=== PATIENT | female | born 1960 | race Caucasian/White ===

== ENCOUNTER → 2016-10-04 | Outpatient (CLI) | payer OTHER ==
[~2016-10-04] MED LIST: METO50TA16 PO; MULT-506; SIMV20TA2
--- NOTE | 2016-10-04 16:31 | MAMMOGRAPHY REPORT ---
BILATERAL DIGITAL SCREENING MAMMOGRAM TOMOSYNTHESIS WITH CAD: 10/04/2016 CLINICAL HISTORY: Routine screening examination. TECHNIQUE: Breast tomosynthesis in addition to standard 2D mammography was performed. Current study was also evaluated with a Computer Aided Detection (CAD) system. COMPARISON: Comparison is made to exams dated: 08/17/2015 mammogram, 08/14/2014 mammogram, 08/13/2013 m ammogram, and 07/22/2010 mammogram - [facility]. BREAST COMPOSITION: There are scattered areas of fibroglandular density in both breasts. FINDINGS: The parenchymal pattern is unchanged. No developing mass, architectural distortion or clu ster of suspicious microcalcifications is seen in either breast. IMPRESSION: ACR BI-RADS CATEGORY 2: BENIGN There is no mammographic evidence of malignancy. A 1 year screening mammogram is recommended. The p atient will receive written notification of the results. Approximately 10% of breast cancers are not detected with mammography. A negative mammographic repor t should not delay biopsy if a clinically suggestive mass is present. Ijeoma Harrington M.D. ay/:10/04/2016 15:39:36 Vocational Horticulture Instructor: Marija CAVANAUGH(R)(M), [facility] letter sent: Normal 1/2 BI-RADS Code: ACR BI-RADS Category 2: Benign
== END | disposition home or self-care (01) ==
LOC: C.MAMM 09:54
PROVIDERS: ATTEND Family Medicine
DX: Z12.31 Encounter for screening mammogram for malignant neoplasm of breast (principal)

== ENCOUNTER 2022-03-16 11:39 | Observation (INO) ==
[2022-03-16] MEDS ORDERED: SODIUM CHLORIDE 0.9% 1000ML 1,000 ML IV ONE (12:01)
[2022-03-16 12:26] LABS: Basophils # (auto) 0.04 K/uL (0-0.2); Basophils % (auto) 0.4 %; Eosinophils # (auto) 0.07 K/uL (0-0.50); Eosinophils % (auto) 0.7 %; Hematocrit (blood only) 45.5 % (34.1-44.9); Hemoglobin 15.2 g/dl (12.0-16.0); Immature Granulocytes # (auto) 0.05 K/uL (0.00-0.02); Immature Granulocytes % (auto) 0.5 %; Lymphocytes # (auto) 1.66 K/uL (1.2-3.4); Lymphocytes % (auto) 16.5 %; Mean Corpuscular Hemoglobin 29.9 pg (25.0-34.0); Mean Corpuscular Hgb Conc 33.4 g/dL (32.0-36.0); Mean Corpuscular Volume 89.6 fL (80.0-100.0); Mean Platelet Volume 11.6 fL (9.4-12.3); Monocytes # (auto) 1.08 K/uL (0.24-0.82); Monocytes % (auto) 10.8 %; Neutrophils # (auto) 7.14 K/uL (1.4-6.5); Neutrophils % (auto) 71.1 %; Platelet Count 169 K/uL (130-400); RDW Standard Deviation 42.9 fL (36.4-46.3); Red Blood Count 5.08 M/uL (3.93-5.22); White Blood Count 10.04 K/ul (4.8-10.8)
--- NOTE | 2022-03-16 12:44 | XRay Report ---
SINGLE VIEW CHEST CLINICAL HISTORY: Atypical chest pain. FINDINGS: An AP, portable, upright chest radiograph is compared to study dated 04/23/2021. The cardiom ediastinal silhouette is unremarkable. There is mild elevation of the left hemidiaphragm with left ba silar atelectasis. The lungs and pleural spaces are otherwise clear. No pneumothorax is seen. The ske letal structures are osteopenic. The bony thorax is grossly intact. IMPRESSION: No active disease in the chest. ACT 112: Negative or not required by law. Electronically signed by: Leonel Mathew M.D. 03/16/2022 12:43 PM
[2022-03-16 12:54] LABS: Troponin I High Sensitivity 3.8 pg/ml (0-14)
[2022-03-16 13:00] LABS: Albumin Globulin Ratio 1.8 (0.9-2); Albumin Level 4.2 gm/dl (3.4-5.0); BUN Creatinine Ratio 16.2 (10-20); Bilirubin,Total 0.4 mg/dl (0.2-1.0); Calcium 9.2 mg/dl (8.5-10.1); Creatinine Clr Calc Pharmacy 65.6 ml/min; Est GFR (African American) 71.3 ml/min; Est GFR (Non-African American) 61.5 ml/min; Globulin 2.4 gm/dl (2.5-4.0); Magnesium 2.2 mg/dl (1.7-2.4); Phosphorus 2.6 mg/dl (2.5-4.9); Total Protein 6.6 gm/dl (6.0-8.3)
[2022-03-16] MEDS ORDERED: OPTIRAY 300 500mL IV ONE (13:01)
--- NOTE | 2022-03-16 13:21 | CT Scan Report ---
CT ANGIOGRAM OF THE BRAIN; CT ANGIOGRAM OF THE NECK CLINICAL HISTORY: Right facial numbness. Generalized weakness. COMPARISON STUDY: Unenhanced CT of the brain performed concurrently on 03/16/2022. TECHNIQUE: Following the IV administration of 115 of Optiray 300, CT angiogram of the head and neck w as performed from the aortic arch to the vertex. Images are reviewed in the axial, sagittal, and red nal planes. 3-D MIPS images are created and assessed. IV contrast was administered without complicati on. All measurements were calculated based on NASCET criteria. A dose lowering technique was utilize d adhering to the principles of ALARA. CT DOSE: 1152.47 mGy.cm FINDINGS: Brain parenchyma: The brain parenchyma is normal in appearance. There is no evidence of hemorrhage, m ass effect, or acute territorial ischemia noting angiographic phase technique. There is no evidence o f enhancing mass lesion on the angiogram phase images. The ventricles, sulci, and cisterns are normal in configuration. Russell-white matter differentiation is preserved. No extra-axial fluid collection is seen. Thoracic aorta: Visualized portions of the thoracic aorta are normal in caliber. The aortic arch demo nstrates standard 3-vessel anatomy. Right carotid arterial system: The right common carotid artery is widely patent, as are the right int ernal and external carotid arteries. Mild calcified plaque is noted in the carotid bulb. Left carotid arterial system: The left common carotid artery is widely patent, as are the left cisco certified internetwork expert al and external carotid arteries. Mild calcified plaque is seen in the carotid bulb. Vertebral arteries: The vertebral arteries are widely patent bilaterally and codominant. Subclavian arteries: Widely patent bilaterally. Intracranial vasculature: There is moderate atherosclerotic calcification of the cavernous carotid an d vertebral arteries. The internal carotid arteries are patent at the skull base, as are the anterior and middle cerebral arteries bilaterally. The vertebrobasilar system and posterior cerebral arteries are widely patent. The vertebral arteries are codominant. There is a large left posterior communicat ing artery. There is no aneurysm, high-grade stenosis, or focal vessel cut off seen throughout the in tracranial circulation. Jugular veins: Patent bilaterally. Dural sinuses: Patent. Lung apices: Partially visualized upper lobe lung parenchyma appears clear. Soft tissues: The visualized pharyngeal soft tissues are normal in appearance noting angiographic pha se technique. The oropharyngeal airway appears widely patent. The salivary and thyroid glands are nor mal in appearance. No cervical lymphadenopathy is seen. Skeletal structures: The skeletal structures are osteopenic. The calvarium appears intact. The cervic al spine is within normal limits. Orbits: The bony orbits are intact. Orbital contents are normal as visualized. Sinuses and mastoids: The paranasal sinuses are clear. The mastoid air cells are well pneumatized. IMPRESSION: 1. There is no evidence of hemorrhage, mass effect, or acute territorial ischemia noting angiographic phase technique. 2. Unremarkable CT angiogram of the brain. 3. Unremarkable CT angiogram of the neck. ACT 112: Negative or not required by law. Electronically signed by: Leonel Mathew M.D. 03/16/2022 1:20 PM
--- NOTE | 2022-03-16 13:30 | CT Scan Report ---
CT OF THE HEAD WITHOUT CONTRAST CLINICAL HISTORY: right facial numbness/weakness COMPARISON STUDY: No previous studies for comparison. TECHNIQUE: Helical axial images of the head were obtained without IV contrast. Automated exposure con trol was utilized for the study. A dose lowering technique was utilized adhering to the principles o f ALARA. FINDINGS: No acute intracranial hemorrhage, midline shift or mass effect is present. The ventricular system is unremarkable. The basal cisterns are patent. No extra-axial collections are present. There are no findings to suggest acute dural sinus thrombosis or acute territorial infarct. No significant calvarial abnormalities are present. Visualized portions of the sinuses and mastoid air cells are ernie ar. IMPRESSION: No acute intracranial findings. ACT 112: Negative or not required by law. Electronically signed by: Mike Lopez M.D. 03/16/2022 1:29 PM
--- NOTE | 2022-03-16 15:36 | History & Physical Report ---
Date of Service March 16, 2022 Assessment & Plan (1) Right facial numbness: Plan: Presented with right facial numbness for the last 3 days without any other significant associated symptoms Questionable right facial droop resolved No other symptoms suggestive of TIA We will observe the patient in telemetry unit to rule out stroke/TIA CT of the head, CTA of the head and neck are unremarkable Will get echo of the heart with bubble study MRI is pending Neuro observation every shift Neurology consulted (2) Hypertension: Plan: Remains minimally elevated at 154/91 We will continue current medications of beta-amandeep (3) History of right breast cancer: Plan: Status post surgery 2019 Has been on tamoxifen History of migraine Stable without any acute attack Chronic back pain No acute issues DVT prophylaxis SCDs for now CODE STATUS Full History of Present Illness Chief Complaint: Right facial numbness since Monday last. Primary Care Provider: Morenita Bryson DO She is a 61-year-old female with significant past medical history of hypertension, migraine without any water, history of breast cancer status post surgery and seasonal allergies apparently has been going to sessions with chiropractor maneuver for the neck for about 10 days. She has been complaining of right facial numbness since Monday last and associated with questionable right facial droop this morning. Her symptoms of neck pain improved with chiropractic maneuver and she was at chiropractor's office today with right facial numbness and was advised to call her PCP and eventually came to the e mergency room. He did not have any other associated symptoms of numbness or tingling in the extremities, no weakness involving any side of the body, no problem with speech and/or swallowing and no problem with gait. She has had issues with her right eye diplopia for the last 6-month and she has been under care of spareribs trimmer for that and she thinks there may be slight worsening of her diplopia recently. She denies any chest pain, palpitation, any shortness of breath, any nausea and or vomiting. Her neuro exam was unremarkable and initial investigation including CT of the head, CTA of the head and neck were unremarkable. He was admitted to telemetry unit for continuation of care. Allergies Allergy/AdvReac Type Severity Reaction Status Date / Time latex Allergy CONTACT Verified 04/23/21 22:06 Home Medications Medication Instructions Recorded Confirmed Type tramadol 50 mg tablet 50 mg PO BID PRN Pain 09/07/18 05/26/21 History celecoxib 200 mg capsule (Celebrex) 200 mg PO DAILY PRN Pain 05/27/20 05/26/21 History turmeric 400 mg capsule 400 mg PO DAILY 05/27/20 05/26/21 History magnesium oxide 400 mg PO DAILY 04/23/21 05/26/21 History metoprolol succinate 50 mg 50 mg PO DAILY 04/23/21 05/26/21 History tablet,extended release 24 hr multivitamin 1 tab PO DAILY 04/23/21 05/26/21 History tamoxifen 10 mg tablet 10 mg PO .QOD 05/26/21 05/26/21 History Past Med/Surg History Medical History Breast cancer, right Herniated disc High blood cholesterol High cholesterol PCOS (polycystic ovarian syndrome) Surgical History H/O pelvic surgery repair of cervix and vaginal wall after childbirth in 1995 S/P OLLIE (total abdominal hysterectomy) surgery 2008 Status post right breast lumpectomy surgery 08-02-2018 Status post surgery re excision right breast 08-16-2018 Status post tonsillectomy surgery 1990 Family History Mother Hypertension Father , age 40 Myocardial infarction Brother No problems noted. Son No problems noted. 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 Feels Safe at Home: Yes Review of Systems Review of Systems: All systems reviewed as in H&P Neurologic: Minimal right facial numbness Physical Exam Physical Exam: Lying in bed comfortably Constitutional: well developed, well nourished and + obese; not ill appearing Eyes: PERRL, conjunctivae normal, anicteric sclerae ENMT: external ear and nose normal, oropharynx normal Neck: trachea midline, no thyromegaly Respiratory: no respiratory distress Auscultation: lungs clear to auscultation bilaterally Cardiovascular: Rate/Rhythm: regular rate and regular rhythm; not tachycardic Heart Sounds: normal S1 and normal S2; no murmur Gastrointestinal (Abdomen): Inspection/Auscultation: normal bowel sounds; abdomen not distended Percussion/Palpation: abdomen soft; abdomen nontender Musculoskeletal: No acute arthritis in any joint Neurologic: patellar DTR's 2+ bilat, sensation intact Motor/Sensory: no tremor, normal movement and no sensory deficit Coordination: normal [id number] test Psychiatric: A+Ox3, euthymic affect Lymphatic: no cervical or axillary lymphadenopathy Results & Data Results & Data ([facility]) Vital Signs (Past 12 Hours) Vital Signs Temp Pulse Resp BP Pulse Ox O2 Del Method 03/16/22 14:24 154/91 H 03/16/22 13:10 94 H 15 99 Room Air 03/16/22 13:00 112 H 14 100 Room Air 03/16/22 13:00 166/88 H 03/16/22 12:58 180/89 H 03/16/22 12:58 109 H 18 100 Room Air 03/16/22 12:57 109 H 16 100 Room Air 03/16/22 12:30 93 H 22 98 Room Air 03/16/22 12:15 90 16 99 Room Air 03/16/22 12:10 192/137 H 03/16/22 12:00 101 H 18 98 Room Air 03/16/22 13:04 98 Room Air 03/16/22 11:44 36.7 C 95 H 18 186/113 H 100 Room Air Laboratory Results Short CBC 03/16/22 Range/Units 12:13 WBC 10.04 (4.8-10.8) K/ul Hgb 15.2 (12.0-16.0) g/dl Hct 45.5 H (34.1-44.9) % Plt Count 169 (130-400) K/uL BMP 03/16/22 12:13 Sodium 142 Potassium 4.0 Chloride 106 Carbon Dioxide 28 BUN 16 Creatinine 0.99 Glucose 115 H Calcium 9.2 Liver Function 03/16/22 Range/Units 12:13 Total Bilirubin 0.4 (0.2-1.0) mg/dl AST 20 (13-39) U/L ALT 18 (7-52) U/L Alkaline Phosphatase 82 (34-104) U/L Albumin 4.2 (3.4-5.0) gm/dl Code Status & VTE Plan VTE Prophylaxis Plan VTE Prophylaxis will be ordered: Yes
[2022-03-16 16:05] LABS: Lyme Ab IgG w/WB Rflx Negative (Negative)
[2022-03-16 16:06] LABS: Lyme Ab IgM w/WB Rflx Negative (Negative)
[2022-03-16] MEDS ORDERED: traMADol HCL 50 MG TABLET PO PRN (16:52)
[2022-03-16] MEDS ORDERED: CeleBREX 200 MG CAP PO PRN (16:52)
--- NOTE | 2022-03-16 18:27 | Magnetic Resonance Report ---
MRI OF THE BRAIN WITHOUT CONTRAST CLINICAL HISTORY: right lower facial weakness/droop COMPARISON STUDY: Head CT and CTA of the head performed earlier today. TECHNIQUE: Utilizing a 1.5 Natasha magnet and dedicated coil, multiplanar, multiecho imaging of the bra in was performed without IV contrast. FINDINGS: There are no foci of restricted diffusion to suggest acute infarct. No acute intracranial h emorrhage, midline shift or mass effect is present. Brain volume is normal. Ventricular system is nor mal. Basal cisterns are patent. There are no extra axial collections. Flow-voids for the major intrac ranial vessels are present. A 3 mm white matter T2 hyperintense focus within the left frontal lobe is of doubtful significance. No intracranial masses are identified on this unenhanced examination. No f oci suspicious calvarial replacement. No evidence for sinusitis. IMPRESSION: No acute intracranial findings. ACT 112: Negative or not required by law. Electronically signed by: Mike Lopez M.D. 03/16/2022 6:25 PM
--- NOTE | 2022-03-16 19:55 | Emergency Department Note ---
Impression & Plan Right facial numbness, Hypertension, Weakness on right side of face ED Provider Note NAME: BJ MCCLOUD AGE: 61 SEX: F ARRIVES VIA: Walk-In INFORMANT: Patient ED PROVIDER(S): Pietro Salgado MD CHIEF COMPLAINT: Right facial numbness/weakness. PLAN: Disposition: Admit MEDICAL DECISION MAKING: The patient is a pleasant 61-year-old woman with a prior history of breast cancer status post surgery and radiation remotely who presents to the emergency department for evaluation of right facial numbness that has been ongoing for the past 2 days with the development of extensive facial weakness and right lower facial droop that she noticed at 9 AM this morning when looking into the mirror. Patient reports she has had ongoing right neck numbness and tingling for the past several weeks where she saw a chiropractor last Monday and following thi s began developed tingling in her face and development of weakness. She also reports that she has been having vision changes/blurred vision for which she has followed up with ophthalmology for recently and was diagnosed with epiretinal membranes bilateral eyes. However she reports mainly experiencing double vision over the past week. She denies any extremity weakness, vertigo or imbalance. Denies recent fevers, chills, cough, congestion, GI or symptoms. On arrival the patient is no distress, afebrile, with BP initially 180s/110s and otherwise stable vital signs. She appears clinically dry. She has very subtle right lower facial weakness/asymmetry at rest and is symmetric with smile. There is no overt involvement of the forehead or eyelid. 5/5 strength and SILT x 4 extremities. Cerebellar function intact including amuqjj-jy-fcik, alternating palms, wpak-[id number]. EKG without overt acute ischemia. CXR negative for acute cardiopulmonary process. WBC, hemoglobin and platelets within normal limits. Chemistry without metabolic acidosis. Electrolytes and LFTs unremarkable. High-sensitivity troponin 3.8, within normal limits. Lipase not elevated. TSH within normal limits. Lyme screen was negative. COVID-19 RNA, NAAT test was negative. CT of the head and CTA of the head and neck were performed were negative for ICH, ischemia or severe narrowing occlusion of large vessels. Given the patient has no clear involvement of the forehead suggest Maddox's palsy we did agree to proceed with admission for further evaluation. Case was discussed with Dr. Francois, [facility] who will evaluate the patient for admission. Triage Nursing notes reviewed and agree them. Prior medical records reviewed Vital Signs: reviewed and remarkable for no significant abnormalities Differential diagnosis: Infection, dehydration, metabolic abnormality, hypo/hyperglycemia, electrolyte disturbance, anemia, hypoxia, cardiac sources, intracerebral event, toxicologic, neurologic, as well as other pathologies. ER treatment provided: See below. Diagnostics interpreted by me: ECG: Normal sinus rhythm, 90 bpm, no ectopy, no overt ST elevation or depression, QTC 479, QRS 84. Cardiac Monitoring: An order for continuous cardiac monitoring was placed and demonstrated Normal sinus rhythm, 90 bpm, no ectopy. Laboratory studies: See below Imaging studies: See below Consultation(s): Case was discussed with Tiesha Andrade [facility] who will evaluate the patient for admission. HPI: The patient is a pleasant 61-year-old woman with a prior history of breast cancer status post surgery and radiation remotely who presents to the emergency department for evaluation of right facial numbness that has been ongoing for the past 2 days with the development of extensive facial weakness and right lower facial droop that she noticed at 9 AM this morning when looking into the mirror. Patient reports she has had ongoing right neck numbness and tingling for the past several weeks where she saw a chiropractor last Monday and following this began developed tingling in her face and development of weakness. She also reports that she has been having vision changes/blurred vision for which she has followed up with ophthalmology for recently and was diagnosed with epiretinal membranes bilateral eyes. However she reports mainly experiencing double vision over the past week. She denies any extremity weakness, vertigo or imbalance. Denies recent fevers, chills, cough, congestion, GI or symptoms. ROS: See above HPI for pertinent positives & negatives. A total of 10 systems reviewed and were otherwise negative. VITALS:See Below PHYSICAL EXAMINATION: GENERAL: Awake, alert, well-appearing, in no distress HENT: Normocephalic, atraumatic. Oropharynx with dry mucous membranes and otherwise unremarkable. EYES: Normal conjunctiva. Sclera non-icteric. EOMI. No nystamgus. PEARRL. NECK: Supple. No nuchal rigidity. FROM. No JVD. RESPIRATORY: Clear to auscultation. CARDIAC: Regular rate, normal rhythm. Extremities warm and well perfused. Pulses equal. ABDOMEN: Soft, non-distended. No tenderness to palpation. No rebound or guarding. No masses. RECTAL: Deferred. MUSCULOSKELETAL: Chest examination reveals no tenderness. The back is symmetrical on inspection without obvious abnormality. There is no CVA tenderness to palpation. No joint edema. LOWER EXTREMITIES: Calves are equal size bilaterally and non-tender. No edema. No discoloration. NEURO: Very subtle right lower facial weakness/asymmetry at rest and is symmetric with smile. There is no overt involvement of the forehead or eyelid. No dysarthria or aphasia. 5/5 strength and SILT x 4 extremities. Cerebellar function intact including vxanlq-td-ilog, alternating palms, dwnv-wm-[id number]. SKIN: No rash or jaundice noted. Pietro Salgado MD Past Med/Surg History Medical History Breast cancer, right Herniated disc High blood cholesterol High cholesterol PCOS (polycystic ovarian syndrome) Surgical History H/O pelvic surgery repair of cervix and vaginal wall after childbirth in 1995 S/P OLLIE (total abdominal hysterectomy) surgery 2008 Status post right breast lumpectomy surgery 08-02-2018 Status post surgery re excision right breast 08-16-2018 Status post tonsillectomy surgery 1990 Family History Mother Hypertension Father , age 40 Myocardial infarction Brother No problems noted. Son No problems noted. 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) Feels Safe at Home: Yes Safety Concerns: Feels Safe At This Time Assistive Devices: Glasses Allergies Allergies Allergy/AdvReac Type Severity Reaction Status Date / Time latex Allergy CONTACT Verified 10/08/21 22:06 Home Meds Home Medications Medication Instructions Recorded Confirmed tramadol 50 mg tablet 50 mg PO BID PRN Pain 09/07/18 05/26/21 celecoxib 200 mg capsule (Celebrex) 200 mg PO DAILY PRN Pain 05/27/20 05/26/21 turmeric 400 mg capsule 400 mg PO DAILY 05/27/20 05/26/21 magnesium oxide 400 mg PO DAILY 04/23/21 05/26/21 metoprolol succinate 50 mg 50 mg PO DAILY 04/23/21 05/26/21 tablet,extended release 24 hr multivitamin 1 tab PO DAILY 04/23/21 05/26/21 tamoxifen 10 mg tablet 10 mg PO .QOD 05/26/21 05/26/21 Results & Data (ED) Vital Signs Vital Signs - 24 hr 03/16/22 11:44 03/16/22 13:04 03/16/22 12:00 Temperature 36.7 C Temperature Source Temporal Artery Scan Pulse Rate 95 H 101 H Pulse Rhythm Regular Respiratory Rate 18 18 Respiratory Effort / Characteristics Non-Labored Respiratory Depth Normal Blood Pressure 186/113 H Blood Pressure Mean 137 Blood Pressure Position Sitting Pulse Oximetry 100 98 98 Oxygen Delivery Method Room Air Room Air Room Air Sepsis Recent Fever Within 48 Hours No Sepsis New/Unexplained Change in Mental Status No Sepsis Action Taken by Nursing No Action Required 03/16/22 12:10 03/16/22 12:15 03/16/22 12:30 Temperature Temperature Source Pulse Rate 90 93 H Pulse Rhythm Respiratory Rate 16 22 Respiratory Effort / Characteristics Respiratory Depth Blood Pressure 192/137 H Blood Pressure Mean 155 Blood Pressure Position Pulse Oximetry 99 98 Oxygen Delivery Method Room Air Room Air Sepsis Recent Fever Within 48 Hours Sepsis New/Unexplained Change in Mental Status Sepsis Action Taken by Nursing 03/16/22 12:57 03/16/22 12:58 03/16/22 12:58 Temperature Temperature Source Pulse Rate 109 H 109 H Pulse Rhythm Respiratory Rate 16 18 Respiratory Effort / Characteristics Respiratory Depth Blood Pressure 180/89 H Blood Pressure Mean 119 Blood Pressure Position Pulse Oximetry 100 100 Oxygen Delivery Method Room Air Room Air Sepsis Recent Fever Within 48 Hours Sepsis New/Unexplained Change in Mental Status Sepsis Action Taken by Nursing 03/16/22 13:00 03/16/22 13:00 03/16/22 13:10 Temperature Temperature Source Pulse Rate 112 H 94 H Pulse Rhythm Respiratory Rate 14 15 Respiratory Effort / Characteristics Respiratory Depth Blood Pressure 166/88 H Blood Pressure Mean 114 Blood Pressure Position Pulse Oximetry 100 99 Oxygen Delivery Method Room Air Room Air Sepsis Recent Fever Within 48 Hours Sepsis New/Unexplained Change in Mental Status Sepsis Action Taken by Nursing 03/16/22 14:24 Temperature Temperature Source Pulse Rate Pulse Rhythm Respiratory Rate Respiratory Effort / Characteristics Respiratory Depth Blood Pressure 154/91 H Blood Pressure Mean 112 Blood Pressure Position Pulse Oximetry Oxygen Delivery Method Sepsis Recent Fever Within 48 Hours Sepsis New/Unexplained Change in Mental Status Sepsis Action Taken by Nursing Laboratory Data Attestation: I reviewed the patient's lab results. Result diagrams: 03/16/22 12:13 03/16/22 12:13 Lab Results 03/16/22 03/16/22 03/16/22 Range/Units 12:13 12:13 12:13 WBC 10.04 (4.8-10.8) K/ul RBC 5.08 (3.93-5.22) M/uL Hgb 15.2 (12.0-16.0) g/dl Hct 45.5 H (34.1-44.9) % MCV 89.6 (80.0-100.0) fL MCH 29.9 (25.0-34.0) pg MCHC 33.4 (32.0-36.0) g/dL RDW Std Deviation 42.9 (36.4-46.3) fL RDW Coeff of Candice 13.0 (11.5-14.5) % Plt Count 169 (130-400) K/uL MPV 11.6 (9.4-12.3) fL Immature Gran % (Auto) 0.5 % Neut % (Auto) 71.1 % Lymph % (Auto) 16.5 % Saline % (Auto) 10.8 % Eos % (Auto) 0.7 % Baso % (Auto) 0.4 % Neut # (Auto) 7.14 H (1.4-6.5) K/uL Lymph # (Auto) 1.66 (1.2-3.4) K/uL Saline # (Auto) 1.08 H (0.24-0.82) K/uL Eos # (Auto) 0.07 (0-0.50) K/uL Baso # (Auto) 0.04 (0-0.2) K/uL Immature Gran # (Auto) 0.05 H (0.00-0.02) K/uL Sodium 142 (136-145) mmol/L Potassium 4.0 (3.5-5.1) mmol/L Chloride 106 (98-107) mmol/L Carbon Dioxide 28 (21-32) mmol/L Anion Gap 8 (3-11) BUN 16 (6-23) mg/dl Creatinine 0.99 (0.6-1.2) mg/dl Est Cr Clr Drug Dosing 65.6 ml/min Est GFR ( Amer) 71.3 ml/min Est GFR (Non-Af Amer) 61.5 ml/min BUN/Creatinine Ratio 16.2 (10-20) Glucose 115 H (70-99(Fasting)) mg/dl Calcium 9.2 (8.5-10.1) mg/dl Phosphorus 2.6 (2.5-4.9) mg/dl Magnesium 2.2 (1.7-2.4) mg/dl Total Bilirubin 0.4 (0.2-1.0) mg/dl AST 20 (13-39) U/L ALT 18 (7-52) U/L Alkaline Phosphatase 82 (34-104) U/L Troponin I High Sens 3.8 (0-14) pg/ml Total Protein 6.6 (6.0-8.3) gm/dl Albumin 4.2 (3.4-5.0) gm/dl Globulin 2.4 L (2.5-4.0) gm/dl Albumin/Globulin Ratio 1.8 (0.9-2) Lipase 26 (11-82) U/L TSH 4.497 (0.300-4.500) uIu/ml Lyme Disease IgG Ab (Negative) Lyme Disease IgM Ab (Negative) SARS-CoV-2, RNA, NAAT (NEGATIVE) 03/16/22 03/16/22 Range/Units 12:13 14:04 WBC (4.8-10.8) K/ul RBC (3.93-5.22) M/uL Hgb (12.0-16.0) g/dl Hct (34.1-44.9) % MCV (80.0-100.0) fL MCH (25.0-34.0) pg MCHC (32.0-36.0) g/dL RDW Std Deviation (36.4-46.3) fL RDW Coeff of Candice (11.5-14.5) % Plt Count (130-400) K/uL MPV (9.4-12.3) fL Immature Gran % (Auto) % Neut % (Auto) % Lymph % (Auto) % Saline % (Auto) % Eos % (Auto) % Baso % (Auto) % Neut # (Auto) (1.4-6.5) K/uL Lymph # (Auto) (1.2-3.4) K/uL Saline # (Auto) (0.24-0.82) K/uL Eos # (Auto) (0-0.50) K/uL Baso # (Auto) (0-0.2) K/uL Immature Gran # (Auto) (0.00-0.02) K/uL Sodium (136-145) mmol/L Potassium (3.5-5.1) mmol/L Chloride (98-107) mmol/L Carbon Dioxide (21-32) mmol/L Anion Gap (3-11) BUN (6-23) mg/dl Creatinine (0.6-1.2) mg/dl Est Cr Clr Drug Dosing ml/min Est GFR ( Amer) ml/min Est GFR (Non-Af Amer) ml/min BUN/Creatinine Ratio (10-20) Glucose (70-99(Fasting)) mg/dl Calcium (8.5-10.1) mg/dl Phosphorus (2.5-4.9) mg/dl Magnesium (1.7-2.4) mg/dl Total Bilirubin (0.2-1.0) mg/dl AST (13-39) U/L ALT (7-52) U/L Alkaline Phosphatase (34-104) U/L Troponin I High Sens (0-14) pg/ml Total Protein (6.0-8.3) gm/dl Albumin (3.4-5.0) gm/dl Globulin (2.5-4.0) gm/dl Albumin/Globulin Ratio (0.9-2) Lipase (11-82) U/L TSH (0.300-4.500) uIu/ml Lyme Disease IgG Ab Negative (Negative) Lyme Disease IgM Ab Negative (Negative) SARS-CoV-2, RNA, NAAT NEGATIVE (NEGATIVE) Administered Medications Acetaminophen (Acetaminophen 325 Mg Tab) 650 mg PO Q6H PRN PRN Reason: Fever/pain Stop: 04/15/22 21:28 Last Admin: 03/16/22 21:55 Dose: 650 mg Documented By: JT Discontinued Medications Sodium Chloride (Nss 1000ml) 1,000 mls @ 999 mls/hr IV .Q1H1M ONE Stop: 03/16/22 13:01 Last Infusion: 03/16/22 14:31 Dose: 0 mls/hr Documented By: Admin: 03/16/22 12:33 Dose: 999 mls/hr Documented By: HG Ioversol (Optiray 300 500ml) 115 ml IV ONCE ONE Stop: 03/16/22 13:02 Last Admin: 03/16/22 13:01 Dose: 115 ml Documented By: ROCKY Imaging Data Radiologist's Impression: Brain MRI 03/16/22 14:41 MRI OF THE BRAIN WITHOUT CONTRAST CLINICAL HISTORY: right lower facial weakness/droop COMPARISON STUDY: Head CT and CTA of the head performed earlier today. TECHNIQUE: Utilizing a 1.5 Natasha magnet and dedicated coil, multiplanar, multiecho imaging of the brain was performed without IV contrast. FINDINGS: There are no foci of restricted diffusion to suggest acute infarct. No acute intracranial hemorrhage, midline shift or mass effect is present. Brain volume is normal. Ventricular system is normal. Basal cisterns are patent. There are no extra axial collections. Flow-voids for the major intracranial vessels are present. A 3 mm white matter T2 hyperintense focus within the left frontal lobe is of doubtful significance. No intracranial masses are identified on this unenhanced examination. No foci suspicious calvarial replacement. No evidence for sinusitis. IMPRESSION: No acute intracranial findings. ACT 112: Negative or not required by law. Electronically signed by: Mike Lopez M.D. 03/16/2022 6:25 PM Chest X-Ray 03/16/22 12:00 SINGLE VIEW CHEST CLINICAL HISTORY: Atypical chest pain. FINDINGS: An AP, portable, upright chest radiograph is compared to study dated 04/23/2021. The cardiomediastinal silhouette is unremarkable. There is mild elevation of the left hemidiaphragm with left basilar atelectasis. The lungs and pleural spaces are otherwise clear. No pneumothorax is seen. The skeletal structures are osteopenic. The bony thorax is grossly intact. IMPRESSION: No active disease in the chest. ACT 112: Negative or not required by law. Electronically signed by: Leonel Mathew M.D. 03/16/2022 12:[address] 03/16/22 12:20 CT OF THE HEAD WITHOUT CONTRAST CLINICAL HISTORY: right facial numbness/weakness COMPARISON STUDY: No previous studies for comparison. TECHNIQUE: Helical axial images of the head were obtained without IV contrast. Automated exposure control was utilized for the study. A dose lowering technique was utilized adhering to the principles of ALARA. FINDINGS: No acute intracranial hemorrhage, midline shift or mass effect is present. The ventricular system is unremarkable. The basal cisterns are patent. No extra-axial collections are present. There are no findings to suggest acute dural sinus thrombosis or acute territorial infarct. No significant calvarial abnormalities are present. Visualized portions of the sinuses and mastoid air cells are clear. IMPRESSION: No acute intracranial findings. ACT 112: Negative or not required by law. Electronically signed by: Mike Lopez M.D. 03/16/2022 1:29 PM Head CTA 03/16/22 12:20 CT ANGIOGRAM OF THE BRAIN; CT ANGIOGRAM OF THE NECK CLINICAL HISTORY: Right facial numbness. Generalized weakness. COMPARISON STUDY: Unenhanced CT of the brain performed concurrently on 03/16/2022. TECHNIQUE: Following the IV administration of 115 of Optiray 300, CT angiogram of the head and neck was performed from the aortic arch to the vertex. Images are reviewed in the axial, sagittal, and coronal planes. 3-D MIPS images are created and assessed. IV contrast was administered without complication. All measurements were calculated based on NASCET criteria. A dose lowering technique was utilized adhering to the principles of ALARA. CT DOSE: 1152.47 mGy.cm FINDINGS: Brain parenchyma: The brain parenchyma is normal in appearance. There is no evid ence of hemorrhage, mass effect, or acute territorial ischemia noting angiographic phase technique. There is no evidence of enhancing mass lesion on the angiogram phase images. The ventricles, sulci, and cisterns are normal in configuration. Russell-white matter differentiation is preserved. No extra-axial fluid collection is seen. Thoracic aorta: Visualized portions of the thoracic aorta are normal in caliber. The aortic arch demonstrates standard 3-vessel anatomy. Right carotid arterial system: The right common carotid artery is widely patent, as are the right internal and external carotid arteries. Mild calcified plaque is noted in the carotid bulb. Left carotid arterial system: The left common carotid artery is widely patent, as are the left internal and external carotid arteries. Mild calcified plaque is seen in the carotid bulb. Vertebral arteries: The vertebral arteries are widely patent bilaterally and codominant. Subclavian arteries: Widely patent bilaterally. Intracranial vasculature: There is moderate atherosclerotic calcification of the cavernous carotid and vertebral arteries. The internal carotid arteries are patent at the skull base, as are the anterior and middle cerebral arteries bilaterally. The vertebrobasilar system and posterior cerebral arteries are widely patent. The vertebral arteries are codominant. There is a large left posterior communicating artery. There is no aneurysm, high-grade stenosis, or focal vessel cut off seen throughout the intracranial circulation. Jugular veins: Patent bilaterally. Dural sinuses: Patent. Lung apices: Partially visualized upper lobe lung parenchyma appears clear. Soft tissues: The visualized pharyngeal soft tissues are normal in appearance noting angiographic phase technique. The oropharyngeal airway appears widely patent. The salivary and thyroid glands are normal in appearance. No cervical lymphadenopathy is seen. Skeletal structures: The skeletal structures are osteopenic. The calvarium a ppears intact. The cervical spine is within normal limits. Orbits: The bony orbits are intact. Orbital contents are normal as visualized. Sinuses and mastoids: The paranasal sinuses are clear. The mastoid air cells are well pneumatized. IMPRESSION: 1. There is no evidence of hemorrhage, mass effect, or acute territorial ischemia noting angiographic phase technique. 2. Unremarkable CT angiogram of the brain. 3. Unremarkable CT angiogram of the neck. ACT 112: Negative or not required by law. Electronically signed by: Leonel Mathew M.D. 03/16/2022 1:20 PM Neck CTA 03/16/22 12:20 CT ANGIOGRAM OF THE BRAIN; CT ANGIOGRAM OF THE NECK CLINICAL HISTORY: Right facial numbness. Generalized weakness. COMPARISON STUDY: Unenhanced CT of the brain performed concurrently on 03/16/2022. TECHNIQUE: Following the IV administration of 115 of Optiray 300, CT angiogram of the head and neck was performed from the aortic arch to the vertex. Images are reviewed in the axial, sagittal, and coronal planes. 3-D MIPS images are created and assessed. IV contrast was administered without complication. All measurements were calculated based on NASCET criteria. A dose lowering technique was utilized adhering to the principles of ALARA. CT DOSE: 1152.47 mGy.cm FINDINGS: Brain parenchyma: The brain parenchyma is normal in appearance. There is no evidence of hemorrhage, mass effect, or acute territorial ischemia noting angiographic phase technique. There is no evidence of enhancing mass lesion on the angiogram phase images. The ventricles, sulci, and cisterns are normal in configuration. Russell-white matter differentiation is preserved. No extra-axial fluid collection is seen. Thoracic aorta: Visualized portions of the thoracic aorta are normal in caliber. The aortic arch demonstrates standard 3-vessel anatomy. Right carotid arterial system: The right common carotid artery is widely patent, as are the right internal and external carotid arteries. Mild calcified plaque is noted in the carotid bulb. Left carotid arterial system: The left common carotid artery is widely patent, as are the left internal and external carotid arteries. Mild calcified plaque is seen in the carotid bulb. Vertebral arteries: The vertebral arteries are widely patent bilaterally and codominant. Subclavian arteries: Widely patent bilaterally. Intracranial vasculature: There is moderate atherosclerotic calcification of the cavernous carotid and vertebral arteries. The internal carotid arteries are patent at the skull base, as are the anterior and middle cerebral arteries bilaterally. The vertebrobasilar system and posterior cerebral arteries are widely patent. The vertebral arteries are codominant. There is a large left posterior communicating artery. There is no aneurysm, high-grade stenosis, or focal vessel cut off seen throughout the intracranial circulation. Jugular veins: Patent bilaterally. Dural sinuses: Patent. Lung apices: Partially visualized upper lobe lung parenchyma appears clear. Soft tissues: The visualized pharyngeal soft tissues are normal in appearance noting angiographic phase technique. The oropharyngeal airway appears widely patent. The salivary and thyroid glands are normal in appearance. No cervical lymphadenopathy is seen. Skeletal structures: The skeletal structures are osteopenic. The calvarium appears intact. The cervical spine is within normal limits. Orbits: The bony orbits are intact. Orbital contents are normal as visualized. Sinuses and mastoids: The paranasal sinuses are clear. The mastoid air cells are well pneumatized. IMPRESSION: 1. There is no evidence of hemorrhage, mass effect, or acute territorial ischemia noting angiographic phase technique. 2. Unremarkable CT angiogram of the brain. 3. Unremarkable CT angiogram of the neck. ACT 112: Negative or not required by law. Electronically signed by: Leonel Mathew M.D. 03/16/2022 1:20 PM Brain MRI 03/16/22 14:41 MRI OF THE BRAIN WITHOUT CONTRAST CLINICAL HISTORY: right lower facial weakness/droop COMPARISON STUDY: Head CT and CTA of the head performed earlier today. TECHNIQUE: Utilizing a 1.5 Natasha magnet and dedicated coil, multiplanar, multiecho imaging of the brain was performed without IV contrast. FINDINGS: There are no foci of restricted diffusion to suggest acute infarct. No acute intracranial hemorrhage, midline shift or mass effect is present. Brain volume is normal. Ventricular system is normal. Basal cisterns are patent. There are no extra axial collections. Flow-voids for the major intracranial vessels are present. A 3 mm white matter T2 hyperintense focus within the left frontal lobe is of doubtful significance. No intracranial masses are identified on this unenhanced examination. No foci suspicious calvarial replacement. No evidence for sinusitis. IMPRESSION: No acute intracranial findings. ACT 112: Negative or not required by law. Electronically signed by: Mike Lopez M.D. 03/16/2022 6:25 PM Discharge Plan Visit Data Chief Complaint: Neuro Symptoms/Deficit Stated Complaint: DROOPING IN FACE, NUMBNESS, DOUBLE VISION ED Provider: Pietro Salgado Discharge Problem: Right facial numbness, Hypertension, Weakness on right side of face Patient Disposition: Admitted As Inpatient Discharge Instructions Interventions: ED Discharge Assessment Last Done: 03/16/22 16:08
[2022-03-16] MEDS ORDERED: ACETAMINOPHEN 325 MG TAB PO PRN (21:29)
--- NOTE | 2022-03-16 23:28 | Electrocardiogram Report ---
Test Reason : Blood Pressure : / mmHG Vent. Rate : 099 BPM Atrial Rate : 099 BPM P-R Int : 140 ms QRS Dur : 084 ms QT Int : 374 ms P-R-T Axes : 052 -36 033 degrees QTc Int : 479 ms Normal sinus rhythm Possible Left atrial enlargement Left axis deviation Abnormal ECG When compared with ECG of 23-APR-2021 21:45, No significant change was found Confirmed by John Hastings ([id number]) on 03/16/2022 11:28:08 PM Referred By: Confirmed By:John Hastings
[2022-03-17 06:22] LABS: Basophils # (auto) 0.05 K/uL (0-0.2); Basophils % (auto) 0.6 %; Eosinophils # (auto) 0.25 K/uL (0-0.50); Eosinophils % (auto) 3.1 %; Hematocrit (blood only) 44.6 % (34.1-44.9); Hemoglobin 14.6 g/dl (12.0-16.0); Immature Granulocytes # (auto) 0.03 K/uL (0.00-0.02); Immature Granulocytes % (auto) 0.4 %; Lymphocytes # (auto) 2.33 K/uL (1.2-3.4); Lymphocytes % (auto) 28.4 %; Mean Corpuscular Hemoglobin 29.7 pg (25.0-34.0); Mean Corpuscular Hgb Conc 32.7 g/dL (32.0-36.0); Mean Corpuscular Volume 90.7 fL (80.0-100.0); Mean Platelet Volume 11.3 fL (9.4-12.3); Monocytes # (auto) 0.88 K/uL (0.24-0.82); Monocytes % (auto) 10.7 %; Neutrophils # (auto) 4.65 K/uL (1.4-6.5); Neutrophils % (auto) 56.8 %; Platelet Count 152 K/uL (130-400); RDW Coefficient of Variation 13.2 % (11.5-14.5); RDW Standard Deviation 43.4 fL (36.4-46.3); Red Blood Count 4.92 M/uL (3.93-5.22); White Blood Count 8.19 K/ul (4.8-10.8)
[2022-03-17 06:49] LABS: BUN Creatinine Ratio 15.5 (10-20); Calcium 8.5 mg/dl (8.5-10.1); Creatinine Clr Calc Pharmacy 77.9 ml/min; Est GFR (African American) 86.9 ml/min; Magnesium 2.1 mg/dl (1.7-2.4); Potassium 3.8 mmol/L (3.5-5.1)
[2022-03-17] MEDS ORDERED: MAGNESIUM OXIDE 400 MG TAB PO SCH (09:00)
[2022-03-17] MEDS ORDERED: METOPROLOL SUCC 50MG EXT REL TAB PO SCH (09:00)
[2022-03-17] MEDS ORDERED: MULTIVITAMIN TAB PO SCH (09:00)
--- NOTE | 2022-03-17 12:46 | Neurology Consultation ---
Date of Consultation March 17, 2022 Assessment & Plan (1) Weakness on right side of face: (2) Right facial numbness: (3) Facial twitching: (4) Malignant neoplasm of central portion of right breast in female, estrogen receptor positive: Plan ASSESSMENT and PLAN/RECOMMENDATIONS: 1. Right facial numbness, droopiness, and twitches Impression: After chiropractic neck manipulations, the patient reportedly had right facial numbness, muscle twitches, tightness, as well as lower facial slight weakness. History raised concern for dissection of the neck arteries and brainstem ischemia, however, imaging studies did not show any vascular pathology and brain MRI was negative for cerebrovascular accident. There is still a possibility of vertebral artery compression/vasospasm temporarily, following a chiropractic maneuvers, which might explain the patient's symptoms. Simple partial seizures are in differential but less likely. Overall, the patient's symptoms have been resolved so far. Plan: I will start patient on aspirin 81 mg daily, for 6 months, based on possibly until undetected vertebral artery trauma. Lipid panel will be checked by the patient's primary care physician and if it is abnormal, will be treated per primary care physician. The patient understood that she should avoid neck manipulations including chiropractic maneuvers. EEG to evaluate for simple partial seizures. If EEG comes unremarkable, then the patient can be discharged home today. Follow-up with neurology clinic in a month. I have already contacted with Dr. Krishnan's office and they will schedule patient for follow-up appointment. Thank for the consultation. History of Present Illness Reason for Consultation: Right facial numbness and droopiness Requesting Physician: Jack Parrish MD Attending Physician: Anthony Corona MD History of Present Illness The patient is a 61-year-old right-handed female, who was referred to emergency department yesterday, after she reported 2 days history of right facial numbness and droopiness. The patient has been having neck pain for last couple weeks, as well as right facial paresthesias and went to a chiropractor. She has had multiple neck manipulations. Few days ago, after cervical manipulation, the patient noticed right facial tightness, discomfort, numbness, muscle twitches, as well as pain radiating down the right shoulder. She also noticed right hand first 3 fingers numbness, which was not much different than her carpal tunnel symptoms. In emergency department, there was very slight nasolabial fold effacement on the right. The patient was complaining of whole right facial numbness. Head CT, CT angiogram of head and neck did not show abnormality including hemodynamically significant stenosis or dissection. The patient was admitted to hospital for further evaluation. Brain MRI was unremarkable. The patient's symptoms have been resolved mostly since yesterday. Last night, the patient noticed right facial twitches, which was also witnessed by nursing staff. There is no confusion, or additional neurological symptoms with facial twitches. The patient denies having seizure or seizure-like activities in the past. 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 I have reviewed the patient's chart including imaging studies and visualized them personally. I have discussed the case with the patient and answer her questions in detail. Allergies Allergy/AdvReac Type Severity Reaction Status Date / Time latex Allergy CONTACT Verified 04/23/21 22:06 Home Medications Medication Instructions Recorded Confirmed Type tramadol 50 mg tablet 50 mg PO BID PRN Pain 09/07/18 05/26/21 History celecoxib 200 mg capsule (Celebrex) 200 mg PO DAILY PRN Pain 05/27/20 05/26/21 History turmeric 400 mg capsule 400 mg PO DAILY 05/27/20 05/26/21 History magnesium oxide 400 mg PO DAILY 04/23/21 05/26/21 History metoprolol succinate 50 mg 50 mg PO DAILY 04/23/21 05/26/21 History tablet,extended release 24 hr multivitamin 1 tab PO DAILY 04/23/21 05/26/21 History tamoxifen 10 mg tablet 10 mg PO .QOD 05/26/21 05/26/21 History Patient History Medical History Breast cancer, right Herniated disc High blood cholesterol High cholesterol PCOS (polycystic ovarian syndrome) Surgical History H/O pelvic surgery repair of cervix and vaginal wall after childbirth in 1995 S/P OLLIE (total abdominal hysterectomy) surgery 2008 Status post right breast lumpectomy surgery 08-02-2018 Status post surgery re excision right breast 08-16-2018 Status post tonsillectomy surgery 1990 Family History Mother Hypertension Father , age 40 Myocardial infarction Brother No problems noted. Son No problems noted. Daughter PCOS (polycystic ovarian syndrome) Social History Smoking Status: Never smoker Hx Alcohol Use: No Hx Substance Use: No Preferred Language: Greenlandic Communication Ability: Effective Visual Impairment: No Limitations Hearing Ability: Normal Needle Grinder Required: No Beliefs That Will Affect Care: None marital status: Current Living Situation: Spouse current occupational status: retired current occupation: housewife / retired from [email or web address] Other Information That Helps Us Care for You: Yes (attacked by rabdarlene beck in November and rabies series) Feels Safe at Home: Yes Safety Concerns: Feels Safe At This Time Assistive Devices: Glasses Review of Systems Review of Systems: All systems reviewed & are unremarkable except as noted in HPI & below Physical Exam Physical Exam: General Examination: Constitutional: Well developed person in no acute distress. HENT: Normal exam with inspection. CV: Hearth rhtyhm is regular. Neck: Supple, no carotid or vertebral bruits. Lungs: Non-labored and comfortable breathing. Abdomen: Soft, non-tender, non-distended. Skin: No rash or ecchymosis. Extremities: No edema or cyanosis NEUROLOGICAL EXAMINATION: Mental Status: Alert and oriented to place, person and time. Cranial Nerves: II-XII are intact. No nystagmus. Facial sensation is intact. No facial asymmetry. Funduscopy: Normal looking optic discs. Motor: 5/5 in all extremities without asymmetry. DTRs: Symmetrical. No Babinski Tone: Normal without spasticity or rigidity. Sensory: Intact to all sensory modalities. Coordination: No dysmetria with FTN testing. Speech: Fluent. Comprehension is intact. Gait: Normal. No ataxia or abnormal walking pattern. Musculoskeletal: Normal muscle bulk, no atrophy. Results & Data ([facility]) Vital Signs (Past 12 Hours) Vital Signs Temp Pulse Resp BP Pulse Ox O2 Del Method 03/17/22 10:50 36.7 C 83 18 137/86 98 Room Air 03/17/22 07:10 36.5 C 73 16 131/85 100 Room Air 03/17/22 02:36 36.8 C 67 18 124/78 96 Laboratory Results Laboratory Results - last 24 hr 03/16/22 03/16/22 03/17/22 12:13 14:04 05:40 WBC 8.19 RBC 4.92 Hgb 14.6 Hct 44.6 MCV 90.7 MCH 29.7 MCHC 32.7 RDW Std Deviation 43.4 RDW Coeff of Candice 13.2 Plt Count 152 MPV 11.3 Immature Gran % (Auto) 0.4 Neut % (Auto) 56.8 Lymph % (Auto) 28.4 [place] % (Auto) 10.7 Eos % (Auto) 3.1 Baso % (Auto) 0.6 Neut # (Auto) 4.65 Lymph # (Auto) 2.33 [place] # (Auto) 0.88 H Eos # (Auto) 0.25 Baso # (Auto) 0.05 Immature Gran # (Auto) 0.03 H ESR Sodium Potassium Chloride Carbon Dioxide Anion Gap BUN Creatinine Est Cr Clr Drug Dosing Est GFR ( Amer) Est GFR (Non-Af Amer) BUN/Creatinine Ratio Glucose Calcium Magnesium Lyme Disease IgG Ab Negative Lyme Disease IgM Ab Negative Hepatitis C Ab (EIA) Hep C Ab Signal/Cutoff SARS-CoV-2, RNA, NAAT NEGATIVE 03/17/22 03/17/22 03/17/22 05:40 05:40 05:40 WBC RBC Hgb Hct MCV MCH MCHC RDW Std Deviation RDW Coeff of Candice Plt Count MPV Immature Gran % (Auto) Neut % (Auto) Lymph % (Auto) [place] % (Auto) Eos % (Auto) Baso % (Auto) Neut # (Auto) Lymph # (Auto) [place] # (Auto) Eos # (Auto) Baso # (Auto) Immature Gran # (Auto) ESR 7 Sodium 141 Potassium 3.8 Chloride 108 H Carbon Dioxide 26 Anion Gap 7 BUN 13 Creatinine 0.84 Est Cr Clr Drug Dosing 77.9 Est GFR ( Amer) 86.9 Est GFR (Non-Af Amer) 75.0 BUN/Creatinine Ratio 15.5 Glucose 105 H Calcium 8.5 Magnesium 2.1 Lyme Disease IgG Ab Lyme Disease IgM Ab Hepatitis C Ab (EIA) Pending Hep C Ab Signal/Cutoff Pending SARS-CoV-2, RNA, NAAT Diagnostic Findings Chest X-Ray 03/16/22 12:00 SINGLE VIEW CHEST CLINICAL HISTORY: Atypical chest pain. FINDINGS: An AP, portable, upright chest radiograph is compared to study dated 04/23/2021. The cardiomediastinal silhouette is unremarkable. There is mild elevation of the left hemidiaphragm with left basilar atelectasis. The lungs and pleural spaces are otherwise clear. No pneumothorax is seen. The skeletal structures are osteopenic. The bony thorax is grossly intact. IMPRESSION: No active disease in the chest. ACT 112: Negative or not required by law. Electronically signed by: Leonel Mathew M.D. 03/16/2022 12:[address] 03/16/22 12:20 CT OF THE HEAD WITHOUT CONTRAST CLINICAL HISTORY: right facial numbness/weakness COMPARISON STUDY: No previous studies for comparison. TECHNIQUE: Helical axial images of the head were obtained without IV contrast. Automated exposure control was utilized for the study. A dose lowering technique was utilized adhering to the principles of ALARA. FINDINGS: No acute intracranial hemorrhage, midline shift or mass effect is present. The ventricular system is unremarkable. The basal cisterns are patent. No extra-axial collections are present. There are no findings to suggest acute dural sinus thrombosis or acute territorial infarct. No significant calvarial abnormalities are present. Visualized portions of the sinuses and mastoid air cells are clear. IMPRESSION: No acute intracranial findings. ACT 112: Negative or not required by law. Electronically signed by: Mike Lopez M.D. 03/16/2022 1:29 PM Head CTA 03/16/22 12:20 CT ANGIOGRAM OF THE BRAIN; CT ANGIOGRAM OF THE NECK CLINICAL HISTORY: Right facial numbness. Generalized weakness. COMPARISON STUDY: Unenhanced CT of the brain performed concurrently on 03/16/2022. TECHNIQUE: Following the IV administration of 115 of Optiray 300, CT angiogram of the head and neck was performed from the aortic arch to the vertex. Images are reviewed in the axial, sagittal, and coronal planes. 3-D MIPS images are created and assessed. IV contrast was administered without complication. All measurements were calculated based on NASCET criteria. A dose lowering technique was utilized adhering to the principles of ALARA. CT DOSE: 1152.47 mGy.cm FINDINGS: Brain parenchyma: The brain parenchyma is normal in appearance. There is no evidence of hemorrhage, mass effect, or acute territorial ischemia noting angiographic phase technique. There is no evidence of enhancing mass lesion on the angiogram phase images. The ventricles, sulci, and cisterns are normal in configuration. Russell-white matter differentiation is preserved. No extra-axial fluid collection is seen. Thoracic aorta: Visualized portions of the thoracic aorta are normal in caliber. The aortic arch demonstrates standard 3-vessel anatomy. Right carotid arterial system: The right common carotid artery is widely patent, as are the right internal and external carotid arteries. Mild calcified plaque is noted in the carotid bulb. Left carotid arterial system: The left common carotid artery is widely patent, as are the left internal and external carotid arteries. Mild calcified plaque is seen in the carotid bulb. Vertebral arteries: The vertebral arteries are widely patent bilaterally and codominant. Subclavian arteries: Widely patent bilaterally. Intracranial vasculature: There is moderate atherosclerotic calcification of the cavernous carotid and vertebral arteries. The internal carotid arteries are patent at the skull base, as are the anterior and middle cerebral arteries bilaterally. The vertebrobasilar system and posterior cerebral arteries are widely patent. The vertebral arteries are codominant. There is a large left posterior communicating artery. There is no aneurysm, high-grade stenosis, or focal vessel cut off seen throughout the intracranial circulation. Jugular veins: Patent bilaterally. Dural sinuses: Patent. Lung apices: Partially visualized upper lobe lung parenchyma appears clear. Soft tissues: The visualized pharyngeal soft tissues are normal in appearance noting angiographic phase technique. The oropharyngeal airway appears widely patent. The salivary and thyroid glands are normal in appearance. No cervical lymphadenopathy is seen. Skeletal structures: The skeletal structures are osteopenic. The calvarium appears intact. The cervical spine is within normal limits. Orbits: The bony orbits are intact. Orbital contents are normal as visualized. Sinuses and mastoids: The paranasal sinuses are clear. The mastoid air cells are well pneumatized. IMPRESSION: 1. There is no evidence of hemorrhage, mass effect, or acute territorial ischemia noting angiographic phase technique. 2. Unremarkable CT angiogram of the brain. 3. Unremarkable CT angiogram of the neck. ACT 112: Negative or not required by law. Electronically signed by: Leonel Mathew M.D. 03/16/2022 1:20 PM Neck CTA 03/16/22 12:20 CT ANGIOGRAM OF THE BRAIN; CT ANGIOGRAM OF THE NECK CLINICAL HISTORY: Right facial numbness. Generalized weakness. COMPARISON STUDY: Unenhanced CT of the brain performed concurrently on 03/16/2022. TECHNIQUE: Following the IV administration of 115 of Optiray 300, CT angiogram of the head and neck was performed from the aortic arch to the vertex. Images are reviewed in the axial, sagittal, and coronal planes. 3-D MIPS images are created and assessed. IV contrast was administered without complication. All measurements were calculated based on NASCET criteria. A dose lowering technique was utilized adhering to the principles of ALARA. CT DOSE: 1152.47 mGy.cm FINDINGS: Brain parenchyma: The brain parenchyma is normal in appearance. There is no evidence of hemorrhage, mass effect, or acute territorial ischemia noting angiographic phase technique. There is no evidence of enhancing mass lesion on the angiogram phase images. The ventricles, sulci, and cisterns are normal in configuration. Russell-white matter differentiation is preserved. No extra-axial fluid collection is seen. Thoracic aorta: Visualized portions of the thoracic aorta are normal in caliber. The aortic arch demonstrates standard 3-vessel anatomy. Right carotid arterial system: The right common carotid artery is widely patent, as are the right internal and external carotid arteries. Mild calcified plaque is noted in the carotid bulb. Left carotid arterial system: The left common carotid artery is widely patent, as are the left internal and external carotid arteries. Mild calcified plaque is seen in the carotid bulb. Vertebral arteries: The vertebral arteries are widely patent bilaterally and codominant. Subclavian arteries: Widely patent bilaterally. Intracranial vasculature: There is moderate atherosclerotic calcification of the cavernous carotid and vertebral arteries. The internal carotid arteries are patent at the skull base, as are the anterior and middle cerebral arteries bilaterally. The vertebrobasilar system and posterior cerebral arteries are widely patent. The vertebral arteries are codominant. There is a large left posterior communicating artery. There is no aneurysm, high-grade stenosis, or focal vessel cut off seen throughout the intracranial circulation. Jugular veins: Patent bilaterally. Dural sinuses: Patent. Lung apices: Partially visualized upper lobe lung parenchyma appears clear. Soft tissues: The visualized pharyngeal soft tissues are normal in appearance noting angiographic phase technique. The oropharyngeal airway appears widely patent. The salivary and thyroid glands are normal in appearance. No cervical lymphadenopathy is seen. Skeletal structures: The skeletal structures are osteopenic. The calvarium appears intact. The cervical spine is within normal limits. Orbits: The bony orbits are intact. Orbital contents are normal as visualized. Sinuses and mastoids: The paranasal sinuses are clear. The mastoid air cells are well pneumatized. IMPRESSION: 1. There is no evidence of hemorrhage, mass effect, or acute territorial ischemia noting angiographic phase technique. 2. Unremarkable CT angiogram of the brain. 3. Unremarkable CT angiogram of the neck. ACT 112: Negative or not required by law. Electronically signed by: Leonel Mathew M.D. 03/16/2022 1:20 PM Brain MRI 03/16/22 14:41 MRI OF THE BRAIN WITHOUT CONTRAST CLINICAL HISTORY: right lower facial weakness/droop COMPARISON STUDY: Head CT and CTA of the head performed earlier today. TECHNIQUE: Utilizing a 1.5 Natasha magnet and dedicated coil, multiplanar, multiecho imaging of the brain was performed without IV contrast. FINDINGS: There are no foci of restricted diffusion to suggest acute infarct. No acute intracranial hemorrhage, midline shift or mass effect is present. Brain volume is normal. Ventricular system is normal. Basal cisterns are patent. There are no extra axial collections. Flow-voids for the major intracranial vessels are present. A 3 mm white matter T2 hyperintense focus within the left frontal lobe is of doubtful significance. No intracranial masses are identified on this unenhanced examination. No foci suspicious calvarial replacement. No evidence for sinusitis. IMPRESSION: No acute intracranial findings. ACT 112: Negative or not required by law. Electronically signed by: Mike Lopez M.D. 03/16/2022 6:25 PM
[2022-03-17] MEDS ORDERED: ASPIRIN 81 MG ECTAB PO SCH (14:15)
--- NOTE | 2022-03-17 14:29 | Hospitalist Progress Note ---
Date of Service March 17, 2022 Assessment & Plan (1) Right facial numbness: Plan: Right Facial Numbness Suspected transient vertebral artery compression/vasospasmdue to chiropractic maneuvers --MRI Brain:No acute intracranial findings. --Head/Neck CTA:There is no evidence of hemorrhage, mass effect, or acute territorial ischemia noting angiographic phase technique. Unremarkable CT angiogram of the brain. Unremarkable CT angiogram of the neck. --ECHO: Normal LV chamber size with mild concentric LVH. No segmental left ventricle wall motion abnormality. Recommended systolic function is normal. EF 60 to 65%. Left ventricle wall motion is normal. Right ventricle cavity size is normal. Grade 1 diastolic dysfunction. No significant valvular pathology. Patent foramen ovale is present and there is low risk for embolism. --EEG:pending --ESR: normal --Lyme Screen: Negative Started on Aspirin 81mg daily as recommended by neurology Needs outpatient lipid panel --Advised to avoid chiropractic maneuvers Also needs follow-up with neurology in 1 month Plan to discharge home today if EEG is normal. (2) Hypertension: Plan: BP stable Continue home medications (3) History of right breast cancer: Plan: S/P surgery 2019 on tamoxifen H/O Migraine Stable Chronic back pain No acute issues DVT Px: SCDs CODE STATUS Full Code Admission and Anticipated Discharge Date Admission Date: March 16, 2022 Subjective Patient is seen and examined at bedside States right facial numbness, tightness and pain improved with pain medication Denies any focal weakness Also denies any chest pain, shortness of breath, dizziness, nausea, abdominal pain Review of Systems Review of Systems: All systems reviewed & are unremarkable except as noted in Subjective Physical Exam Physical Exam: Physical Exam: Vitals signs as noted above General Appearance:Moderately built and nourished, no apparent distress Head: normocephalic, Atraumatic Eyes: normal inspection, EOMI Neck: supple, Trachea midline Respiratory/Chest: Normal breath sounds, CTA, No accessory muscle use Cardiovascular: S1, S2, No murmur Abdomen/GI:Soft, Non tender, Bowel sounds present Extremities/Musculoskeletal:normal inspection, no edema Neurologic/Psych:AAOX3, grossly no focal neurological deficits, Right facial mild tenderness Skin: normal color, warm Results & Data Results & Data ([facility]) Vital Signs (Past 12 Hours) Vital Signs Temp Pulse Resp BP Pulse Ox O2 Del Method 03/17/22 10:50 36.7 C 83 18 137/86 98 Room Air 03/17/22 07:10 36.5 C 73 16 131/85 100 Room Air 03/17/22 02:36 36.8 C 67 18 124/78 96 Laboratory Results Short CBC 03/17/22 Range/Units 05:40 WBC 8.19 (4.8-10.8) K/ul Hgb 14.6 (12.0-16.0) g/dl Hct 44.6 (34.1-44.9) % Plt Count 152 (130-400) K/uL BMP 03/17/22 05:40 Sodium 141 Potassium 3.8 Chloride 108 H Carbon Dioxide 26 BUN 13 Creatinine 0.84 Glucose 105 H Calcium 8.5
--- NOTE | 2022-03-17 14:47 | Electroencephalogram ---
EEG Procedure Note Date of Service March 17, 2022 Start / End Times Start Time: 1:45 pm End Time: 2:05 pm Referring Physician Stalin Garzon MD History Right facial twitches Home Medication List Medication Instructions Recorded Confirmed Type tramadol 50 mg tablet 50 mg PO BID PRN Pain 09/07/18 05/26/21 History celecoxib 200 mg capsule (Celebrex) 200 mg PO DAILY PRN Pain 05/27/20 05/26/21 History turmeric 400 mg capsule 400 mg PO DAILY 05/27/20 05/26/21 History magnesium oxide 400 mg PO DAILY 04/23/21 05/26/21 History metoprolol succinate 50 mg 50 mg PO DAILY 04/23/21 05/26/21 History tablet,extended release 24 hr multivitamin 1 tab PO DAILY 04/23/21 05/26/21 History tamoxifen 10 mg tablet 10 mg PO .QOD 05/26/21 05/26/21 History Inpatient Medication List Acetaminophen (Acetaminophen 325 Mg Tab) 650 mg PO Q6H PRN PRN Reason: Fever/pain Stop: 04/15/22 21:28 Last Admin: 03/16/22 21:55 Dose: 650 mg Documented By: MAEVE Celecoxib (Celebrex 200 Mg Cap) 200 mg PO DAILY PRN PRN Reason: Pain Stop: 04/15/22 16:51 Last Admin: 03/17/22 08:39 Dose: 200 mg Documented By: REAL Magnesium Oxide (Magnesium Oxide 400 Mg Tab) 400 mg PO DAILY [facility] Stop: 04/16/22 08:59 Last Admin: 03/17/22 08:13 Dose: 400 mg Documented By: REAL Multivitamins (Multivitamin Tab) 1 tab PO DAILY HERMELINDO Stop: 04/16/22 08:59 Last Admin: 03/17/22 08:13 Dose: 1 tab Documented By: REAL Discontinued Medications Sodium Chloride (Nss 1000ml) 1,000 mls @ 999 mls/hr IV .Q1H1M ONE Stop: 03/16/22 13:01 Last Infusion: 03/16/22 14:31 Dose: 0 mls/hr Documented By: Admin: 03/16/22 12:33 Dose: 999 mls/hr Documented By: COLEMAN Ioversol (Optiray 300 500ml) 115 ml IV ONCE ONE Stop: 03/16/22 13:02 Last Admin: 03/16/22 13:01 Dose: 115 ml Documented By: ROCKY Description This is a 21 electrode EEG with a single channel dedicated to limited EKG. The electrodes were placed in accordance with the International 10-20 system. Interpretation Background: There is well organized background rhythm, composed of generalized theta, and alpha waveforms. There is 9 Hz, symmetrical posterior activity, which attenuates with eye opening bilaterally. There is no focal or generalized slowing. Sleep: There is no sleep-related pattern. Stimulation maneuvers: Photic stimulations induce posterior driving responses bilaterally. Hyperventilation is not attempted. Abnormal activity: None. Impression: This is a normal EEG, recorded in wakefulness only. There is no electrographic seizures or epileptogenic discharge. Clinical Correlation Interictal normal EEG cannot rule out potential seizure disorder. If clinically indicated, and follow-up prolonged recording with sleep deprivation might go for further information.
--- NOTE | 2022-03-17 14:59 | Discharge Summary ---
Date of Service March 17, 2022 Admission HPI Per Admitting Provider She is a 61-year-old female with significant past medical history of hypertension, migraine without any water, history of breast cancer status post surgery and seasonal allergies apparently has been going to sessions with chiropractor maneuver for the neck for about 10 days. She has been complaining of right facial numbness since Monday last and associated with questionable right facial droop this morning. Her symptoms of neck pain improved with chiropractic maneuver and she was at chiropractor's office today with right facial numbness and was advised to call her PCP and eventually came to the emergency room. He did not have any other associated symptoms of numbness or tingling in the extremities, no weakness involving any side of the body, no problem with speech and/or swallowing and no problem with gait. She has had issues with her right eye diplopia for the last 6-month and she has been under care of powertrain engineer for that and she thinks there may be slight worsening of her diplopia recently. She denies any chest pain, palpitation, any shortness of breath, any nausea and or vomiting. Her neuro exam was unremarkable and initial investigation including CT of the head, CTA of the head and neck were unremarkable. He was admitted to telemetry unit for continuation of care. Admission Exam Per Admitting Provider Physical Exam Physical Exam: Lying in bed comfortably Constitutional: well developed, well nourished and + obese; not ill appearing Eyes: PERRL, conjunctivae normal, anicteric sclerae ENMT: external ear and nose normal, oropharynx normal Neck: trachea midline, no thyromegaly Respiratory: no respiratory distress Auscultation: lungs clear to auscultation bilaterally Cardiovascular: Rate/Rhythm: regular rate and regular rhythm; not tachycardic Heart Sounds: normal S1 and normal S2; no murmur Gastrointestinal (Abdomen): Inspection/Auscultation: normal bowel sounds; abdomen not distended Percussion/Palpation: abdomen soft; abdomen nontender Musculoskeletal: No acute arthritis in any joint Neurologic: patellar DTR's 2+ bilat, sensation intact Motor/Sensory: no tremor, normal movement and no sensory deficit Coordination: normal [id number] test Psychiatric: A+Ox3, euthymic affect Lymphatic: no cervical or axillary lymphadenopathy Principal Diagnosis Right Facial Numbness Suspected transient vertebral artery compression/vasospasmdue to chiropractic maneuvers Discharge Data Allergies Allergy/AdvReac Type Severity Reaction Status Date / Time latex Allergy CONTACT Verified 04/23/21 22:06 Consultations 03/16/22 14:35 ED Decision to Admit Stat 03/16/22 15:15 Consult Neurology Routine Ordered Studies 03/16/22 12:20 CT angio head w con Stat CT angio neck with con Stat CT head/brain wo con Stat 03/16/22 14:41 MR brain wo con Stat Hospital Course (1) Right facial numbness: Right Facial Numbness Suspected transient vertebral artery compression/vasospasmdue to chiropractic maneuvers --MRI Brain:No acute intracranial findings. --Head/Neck CTA:There is no evidence of hemorrhage, mass effect, or acute territorial ischemia noting angiographic phase technique. Unremarkable CT angiogram of the brain. Unremarkable CT angiogram of the neck. --ECHO: Normal LV chamber size with mild concentric LVH. No segmental left ventricle wall motion abnormality. Recommended systolic function is normal. EF 60 to 65%. Left ventricle wall motion is normal. Right ventricle cavity size is normal. Grade 1 diastolic dysfunction. No significant valvular pathology. Patent foramen ovale is present and there is low risk for embolism. --EEG:pending --ESR: normal --Lyme Screen: Negative Started on Aspirin 81mg daily as recommended by neurology Needs outpatient lipid panel --Advised to avoid chiropractic maneuvers Also needs follow-up with neurology in 1 month Plan to discharge home today if EEG is normal. (2) Hypertension: BP stable Continue home medications (3) History of right breast cancer: S/P surgery 2019 on tamoxifen H/O Migraine Stable Chronic back pain No acute issues DVT Px: SCDs CODE STATUS Full Code Total Time Total Time Spent Total Time Spent (In Minutes): 44 minutes Discharge Plan Discharge Items Patient Disposition: Home - Self-Care Reason For Visit: FACIAL NUMBNESS Discharge Diagnosis: Right Facial Numbness Activity: Per Instructions section Exercise/Sports: Gradually increase as tolerated Non-emergency contact: Primary Care Provider and Neurologist Call non-emergency contact if: you have any medication questions, your symptoms worsen, your pain is concerning for you and you have a fever Follow-up/Referrals: Morenita Bryson DO [Primary Care Provider] - (Date & Time 03/22/2022 11:50 AM Provider Morenita Bryson DO Department Family Medicine [facility] ) Diet: Heart Healthy Addtl Attending Provider Instructions: Follow-up with your primary care physician Dr. Bryson 03/22/2022 11:50 AM Follow-up with your neurologist at [facility] neurology office as outpatient in 3 to 4 weeks as recommended --Start taking Aspirin 81mg daily as recommended by neurology --Avoid chiropractic maneuvers. Seek immediate medical attention if your symptoms reoccur or worsen Please take all medications as instructed on discharge list below. Please call if you have any questions or problems. You can reach a [facility] hospitalist on duty at [facility] 24 hours a day by calling [phone] Pending Studies at Discharge: No Stand-Alone Forms: My [facility], Smoking Cessation Medications and DC Order Prescriptions: New aspirin 81 mg Tablet,Delayed Release (Dr/Ec) 81 mg PO QAM Qty: 30 0RF Continued tramadol 50 mg tablet 50 mg PO BID PRN (Reason: Pain) celecoxib [Celebrex] 200 mg capsule 200 mg PO DAILY PRN (Reason: Pain) turmeric 400 mg capsule 400 mg PO DAILY tamoxifen 10 mg tablet 10 mg PO .QOD multivitamin Tablet 1 tab PO DAILY metoprolol succinate 50 mg tablet extended release 24 hr 50 mg PO DAILY magnesium oxide 400 mg magnesium Tablet 400 mg PO DAILY Discharge Orders: Discharge Order (Routine); Ordered 03/17/22 Ordered By: Anthony Corona Admission Data Admit Date/Time: 03/16/22 15:16 Attending Provider: Anthony Corona Admit Provider: Jack Parrish Primary Care Provider: Morenita Bryson Other Providers: Jack Parrish ; Stalin Garzon
[2022-03-17 15:16] VITALS: BP 143/86; PULSE 68; TEMP 97.5; O2SAT 97
[2022-03-17] MEDS ORDERED: METOPROLOL SUCC 25MG EXT REL TAB PO SCH (21:00)
[2022-03-17] MEDS ORDERED: TAMOXIFEN CITRATE 10 MG TABLET PO SCH (21:00)
== END 2022-03-17 16:03 | disposition home or self-care (01) ==
LOC: ED 11:39 → 2E 11:39 → SUATTDRO 15:16 → 2E 16:08